=== PATIENT | male | born 1960 | race Caucasian/White ===

== ENCOUNTER 2022-06-02 13:44 | Inpatient (IN) ==
[2022-06-02 14:15] LABS: Basophils # 0.1 K/mcL (0.0-0.2); Basophils % 0.5 %; Eosinophils # 0.2 K/mcL (0.0-0.6); Eosinophils % 1.1 %; Hematocrit 45.8 % (37.5-50.1); Hemoglobin 14.8 g/dL (12.9-16.9); Immature Granulocytes % 0.3 % (0-4); Lymphocytes # 3.5 K/mcL (0.6-4.6); Lymphocytes % 26.3 %; Mean Corpuscular HGB Conc 32.3 g/dL (31.6-35.5); Mean Corpuscular Hemoglobin 28.1 pg (28.0-33.3); Mean Corpuscular Volume 87.1 fL (83.0-100.0); Mean Platelet Volume 9.7 fL (9.4-12.4); Monocytes # 1.9 K/mcL (0.0-1.3); Neutrophils # 7.7 K/mcL (1.6-8.9); Platelet Count 354 K/mcL (140-400); Red Blood Count 5.26 M/mcL (4.19-5.50); Red Cell Distribution Width 13.4 % (11.5-14.5); Segmented Neutrophils % 57.8 %; White Blood Count 13.3 K/mcL (4.3-11.1)
[2022-06-02 14:31] LABS: BUN/Creatinine Ratio 18 (6-26); Blood Urea Nitrogen 16 mg/dL (8-23); Calcium 10.1 mg/dL (8.6-10.3); Carbon Dioxide 28 mEq/L (23-29); Chloride 103 mEq/L (98-107); Glucose 124 mg/dL (70-105); Osmolality,Calculated 293 (280-300); Potassium 3.7 mEq/L (3.5-5.1); Sodium 140 mEq/L (136-145); Troponin I < 0.03 ng/mL (< 0.04)
[2022-06-02] MEDS ORDERED: Ondansetron 4 MG/2 ML VIAL IVP ONE (14:33)
[2022-06-02] MEDS ORDERED: 0.9 % Sodium Chloride 1,000 ML IV ONE ×2 (14:33→15:46)
[2022-06-02] MEDS ORDERED: Iopamidol - 370 500 ML MLS IVP ONE (14:33)
[2022-06-02 15:04] LABS: Alanine Aminotransferase 27 Units/L (7-52); Albumin 4.7 g/dL (3.5-5.7); Albumin/Globulin Ratio 1.5 (1.1-2.2); Alkaline Phosphatase 63 Units/L (34-104); Aspartate Amino Transferase 29 Units/L (13-39); Bilirubin,Direct 0.1 mg/dL (0.0-0.2); Bilirubin,Indirect 0.3 mg/dL (0.0-1.0); Bilirubin,Total 0.4 mg/dL (0.3-1.0); Creatine Kinase 274 Units/L (30-223); Globulin 3.1 g/dL (2.4-3.5); Lipase > 1800 Units/L (11-82); Total Protein 7.8 g/dL (6.4-8.9)
[2022-06-02] MEDS ORDERED: Orphenadrine 60 MG/2 ML VIAL IVP ONE (15:08)
[2022-06-02] MEDS ORDERED: Ketorolac 30 MG/ML VIAL IVP ONE (15:08)
[2022-06-02 16:15] LABS: Influenza A PCR Negative (Negative); Influenza B PCR Negative (Negative); Resp. Syncytial Virus PCR Negative (Negative)
[2022-06-02 16:31] LABS: SARS-CoV-2 by PCR (In House) Positive (Negative)
[2022-06-02 16:54] LABS: Bilirubin,Urine Negative (Negative); Blood,Urine Negative (Negative); Clarity,Urine Clear (Clear); Color,Urine Colorless (Yellow); Glucose,Urine (UA) Normal (Normal); Ketones,Urine Negative (Negative); Leukocyte Esterase,Urine Negative (Negative); Nitrite,Urine Negative (Negative); Protein,Urine Negative (Neg-Trace); Urobilinogen,Urine Normal (Normal)
[2022-06-02] MEDS ORDERED: cefTRIAXone 1,000 MG in Water for inj. (sterile) 10 ML IVP ONE (17:06)
[2022-06-02] MEDS ORDERED: MOM Conc 10 ML UD.LIQ PO PRN (17:34)
[2022-06-02] MEDS ORDERED: Naloxone 0.4 MG/ML INJ IVP PRN (17:34)
[2022-06-02] MEDS ORDERED: Melatonin 3 MG TABLET PO PRN (17:34)
[2022-06-02] MEDS ORDERED: Mag Hydrox/Al Hydrox/Simeth 30 ML UDC PO PRN (17:34)
[2022-06-02] MEDS ORDERED: Piperacillin/Tazobactam 3.375 GM in 0.9 % Sodium Chloride Mini Bag 100 ML IVPB SCH (18:00)
[2022-06-02] MEDS: 0.9 % Sodium Chloride 1,000 ML IVC SCH (18:38)
[2022-06-02] MEDS ORDERED: tiZANidine 4 MG TABLET PO ONE (21:52)
[2022-06-02] MEDS: Ondansetron 4 MG/2 ML VIAL IVP PRN (21:56)
[2022-06-02] MEDS: Piperacillin/Tazobactam 3.375 GM in 0.9 % Sodium Chloride Mini Bag 100 ML IVPB SCH (23:28)
[2022-06-03] MEDS ORDERED: Prochlorperazine 10 MG/2 ML VIAL IVP ONE (02:49)
[2022-06-03 03:54] LABS: Lymphocytes % 5.3 %; Red Cell Distribution Width 13.7 % (11.5-14.5)
[2022-06-03 03:55] LABS: Basophils % 0.2 %; Hematocrit 45.7 % (37.5-50.1); Hemoglobin 14.5 g/dL (12.9-16.9); Immature Granulocytes % 0.6 % (0-4); Immature Platelets 10.5 % (1.1-6.1); Lymphocytes # 1.1 K/mcL (0.6-4.6); Mean Corpuscular HGB Conc 31.7 g/dL (31.6-35.5); Mean Corpuscular Hemoglobin 28.3 pg (28.0-33.3); Mean Corpuscular Volume 89.1 fL (83.0-100.0); Mean Platelet Volume 11.4 fL (9.4-12.4); Monocytes # 1.1 K/mcL (0.0-1.3); Monocytes % 5.3 %; Neutrophils # 18.2 K/mcL (1.6-8.9); Platelet Count 178 K/mcL (140-400); Red Blood Count 5.13 M/mcL (4.19-5.50); Segmented Neutrophils % 88.6 %; White Blood Count 20.5 K/mcL (4.3-11.1)
[2022-06-03 04:10] LABS: Lipase 456 Units/L (11-82)
[2022-06-03 04:18] LABS: Alanine Aminotransferase 23 Units/L (7-52); Albumin 4.3 g/dL (3.5-5.7); Albumin/Globulin Ratio 1.5 (1.1-2.2); Alkaline Phosphatase 57 Units/L (34-104); Aspartate Amino Transferase 24 Units/L (13-39); BUN/Creatinine Ratio 20 (6-26); Bilirubin,Total 0.5 mg/dL (0.3-1.0); Blood Urea Nitrogen 16 mg/dL (8-23); Calcium 8.9 mg/dL (8.6-10.3); Carbon Dioxide 22 mEq/L (23-29); Chloride 103 mEq/L (98-107); Globulin 2.8 g/dL (2.4-3.5); Glucose 119 mg/dL (70-105); Osmolality,Calculated 282 (280-300); Sodium 135 mEq/L (136-145); Total Protein 7.1 g/dL (6.4-8.9)
[2022-06-03] MEDS: *HR* Enoxaparin 40 MG/0.4 ML SYRINGE SQ SCH (04:47)
[2022-06-03] MEDS: 0.9 % Sodium Chloride 1,000 ML IVC SCH (04:48)
[2022-06-03] MEDS: *HR* HYDROmorphone (PF) 1 MG/ML SYRINGE IVP PRN ×5 (07:28→23:19)
[2022-06-03] MEDS: Piperacillin/Tazobactam 3.375 GM in 0.9 % Sodium Chloride Mini Bag 100 ML IVPB SCH ×3 (07:29→23:18)
[2022-06-04 01:53] LABS: Mean Platelet Volume 9.7 fL (9.4-12.4); Red Cell Distribution Width 14.3 % (11.5-14.5)
[2022-06-04 01:54] LABS: Hematocrit 41.9 % (37.5-50.1); Hemoglobin 13.5 g/dL (12.9-16.9); Mean Corpuscular HGB Conc 32.2 g/dL (31.6-35.5); Mean Corpuscular Hemoglobin 28.4 pg (28.0-33.3); Platelet Count 286 K/mcL (140-400); Red Blood Count 4.76 M/mcL (4.19-5.50); White Blood Count 26.9 K/mcL (4.3-11.1)
[2022-06-04 02:10] LABS: BUN/Creatinine Ratio 20 (6-26); Blood Urea Nitrogen 15 mg/dL (8-23); Calcium 9.1 mg/dL (8.6-10.3); Carbon Dioxide 22 mEq/L (23-29); Chloride 106 mEq/L (98-107); Creatine Kinase 247 Units/L (30-223); Glucose 107 mg/dL (70-105); Osmolality,Calculated 283 (280-300); Potassium 3.5 mEq/L (3.5-5.1); Sodium 136 mEq/L (136-145)
[2022-06-04 02:51] LABS: Eosinophils # 0.5 K/mcL (0.0-0.6); Lymphocytes # 1.6 K/mcL (0.6-4.6); Monocytes # 2.2 K/mcL (0.0-1.3); Neutrophils # 22.6 K/mcL (1.6-8.9)
[2022-06-04 02:52] LABS: Platelet Estimate Normal (Normal)
[2022-06-04] MEDS: *HR* Enoxaparin 40 MG/0.4 ML SYRINGE SQ SCH (04:08)
[2022-06-04] MEDS: *HR* HYDROmorphone (PF) 1 MG/ML SYRINGE IVP PRN ×6 (04:08→22:12)
[2022-06-04] MEDS: Piperacillin/Tazobactam 3.375 GM in 0.9 % Sodium Chloride Mini Bag 100 ML IVPB SCH ×2 (08:51→16:23)
[2022-06-04] MEDS ORDERED: Iopamidol - 370 500 ML MLS IVP ONE (09:03)
[2022-06-04] MEDS ORDERED: Iopamidol - 370 500 ML MLS PO ONE (09:56)
[2022-06-04] MEDS ORDERED: *HR* HYDROmorphone (PF) 1 MG/ML SYRINGE IVP ONE (10:52)
[2022-06-04 13:08] LABS: Creatine Kinase 186 Units/L (30-223)
[2022-06-04] MEDS: 0.9 % Sodium Chloride 1,000 ML IVC SCH ×2 (14:42→22:13)
[2022-06-04] MEDS: Acetaminophen IV 1,000 MG/100 ML BAG IVPB SCH (18:20)
[2022-06-05] MEDS: Acetaminophen IV 1,000 MG/100 ML BAG IVPB SCH ×5 (00:03→23:48)
[2022-06-05] MEDS: Piperacillin/Tazobactam 3.375 GM in 0.9 % Sodium Chloride Mini Bag 100 ML IVPB SCH ×4 (00:03→23:51)
[2022-06-05] MEDS: *HR* HYDROmorphone (PF) 1 MG/ML SYRINGE IVP PRN ×7 (02:12→23:50)
[2022-06-05 02:45] LABS: Basophils % 0.2 %; Eosinophils % 0.2 %; Hemoglobin 12.2 g/dL (12.9-16.9); Immature Granulocytes % 0.7 % (0-4); Lymphocytes # 1.5 K/mcL (0.6-4.6); Lymphocytes % 6.2 %; Mean Corpuscular HGB Conc 32.1 g/dL (31.6-35.5); Mean Corpuscular Volume 87.4 fL (83.0-100.0); Mean Platelet Volume 10.1 fL (9.4-12.4); Monocytes # 2.5 K/mcL (0.0-1.3); Monocytes % 10.2 %; Neutrophils # 20.5 K/mcL (1.6-8.9); Platelet Count 221 K/mcL (140-400); Red Blood Count 4.35 M/mcL (4.19-5.50); Red Cell Distribution Width 13.8 % (11.5-14.5); Segmented Neutrophils % 82.5 %; White Blood Count 24.8 K/mcL (4.3-11.1)
[2022-06-05 02:49] LABS: Alanine Aminotransferase 15 Units/L (7-52); Albumin 3.7 g/dL (3.5-5.7); Albumin/Globulin Ratio 1.3 (1.1-2.2); Alkaline Phosphatase 64 Units/L (34-104); Aspartate Amino Transferase 26 Units/L (13-39); BUN/Creatinine Ratio 22 (6-26); Bilirubin,Total 0.7 mg/dL (0.3-1.0); Blood Urea Nitrogen 13 mg/dL (8-23); Calcium 8.5 mg/dL (8.6-10.3); Carbon Dioxide 21 mEq/L (23-29); Chloride 104 mEq/L (98-107); Globulin 2.8 g/dL (2.4-3.5); Glucose 101 mg/dL (70-105); Magnesium 1.9 mg/dL (1.6-2.6); Osmolality,Calculated 278 (280-300); Phosphorous 1.6 mg/dL (2.7-4.5); Potassium 3.4 mEq/L (3.5-5.1); Sodium 134 mEq/L (136-145); Total Protein 6.5 g/dL (6.4-8.9)
[2022-06-05] MEDS: 0.9 % Sodium Chloride 1,000 ML IVC SCH ×3 (06:01→20:40)
[2022-06-05] MEDS: *HR* Enoxaparin 40 MG/0.4 ML SYRINGE SQ SCH (06:02)
[2022-06-05] MEDS: *HR* Labetalol 20 MG/4 ML SYRINGE IVP PRN (14:19)
[2022-06-05] MEDS: Ondansetron 4 MG/2 ML VIAL IVP PRN (15:19)
[2022-06-06] MEDS: *HR* HYDROmorphone (PF) 1 MG/ML SYRINGE IVP PRN ×6 (02:58→23:37)
[2022-06-06] MEDS: Ondansetron 4 MG/2 ML VIAL IVP PRN ×2 (03:14→19:26)
[2022-06-06 05:55] LABS: Alanine Aminotransferase 20 Units/L (7-52); Albumin 3.5 g/dL (3.5-5.7); Albumin/Globulin Ratio 1.2 (1.1-2.2); Alkaline Phosphatase 77 Units/L (34-104); Aspartate Amino Transferase 18 Units/L (13-39); BUN/Creatinine Ratio 20 (6-26); Bilirubin,Total 0.7 mg/dL (0.3-1.0); Blood Urea Nitrogen 13 mg/dL (8-23); Calcium 8.6 mg/dL (8.6-10.3); Carbon Dioxide 26 mEq/L (23-29); Chloride 103 mEq/L (98-107); Glucose 99 mg/dL (70-105); Magnesium 1.9 mg/dL (1.6-2.6); Osmolality,Calculated 282 (280-300); Sodium 136 mEq/L (136-145); Total Protein 6.5 g/dL (6.4-8.9)
[2022-06-06] MEDS: *HR* Enoxaparin 40 MG/0.4 ML SYRINGE SQ SCH (06:13)
[2022-06-06] MEDS: Acetaminophen IV 1,000 MG/100 ML BAG IVPB SCH ×4 (06:16→23:37)
[2022-06-06] MEDS: 0.9 % Sodium Chloride 1,000 ML IVC SCH ×3 (07:57→19:27)
[2022-06-06] MEDS: Piperacillin/Tazobactam 3.375 GM in 0.9 % Sodium Chloride Mini Bag 100 ML IVPB SCH ×2 (07:57→15:35)
[2022-06-06 09:02] LABS: Basophils % 0.2 %; Eosinophils # 0.2 K/mcL (0.0-0.6); Eosinophils % 1.1 %; Hematocrit 35.9 % (37.5-50.1); Hemoglobin 12.1 g/dL (12.9-16.9); Immature Granulocytes % 0.5 % (0-4); Lymphocytes # 1.4 K/mcL (0.6-4.6); Lymphocytes % 7.4 %; Mean Corpuscular HGB Conc 33.7 g/dL (31.6-35.5); Mean Corpuscular Hemoglobin 28.9 pg (28.0-33.3); Mean Corpuscular Volume 85.9 fL (83.0-100.0); Mean Platelet Volume 9.6 fL (9.4-12.4); Monocytes # 1.9 K/mcL (0.0-1.3); Monocytes % 10.2 %; Neutrophils # 15.4 K/mcL (1.6-8.9); Platelet Count 246 K/mcL (140-400); Red Blood Count 4.18 M/mcL (4.19-5.50); Red Cell Distribution Width 13.7 % (11.5-14.5); Segmented Neutrophils % 80.6 %
[2022-06-07] MEDS: Piperacillin/Tazobactam 3.375 GM in 0.9 % Sodium Chloride Mini Bag 100 ML IVPB SCH ×3 (02:19→16:02)
[2022-06-07] MEDS: *HR* HYDROmorphone (PF) 1 MG/ML SYRINGE IVP PRN ×2 (04:08→07:34)
[2022-06-07] MEDS: *HR* Enoxaparin 40 MG/0.4 ML SYRINGE SQ SCH (04:09)
[2022-06-07] MEDS: Acetaminophen IV 1,000 MG/100 ML BAG IVPB SCH ×5 (05:37→21:27)
[2022-06-07] MEDS: Ondansetron 4 MG/2 ML VIAL IVP PRN (07:33)
[2022-06-07] MEDS: 0.9 % Sodium Chloride 1,000 ML IVC SCH ×2 (07:37→17:31)
[2022-06-07 08:51] LABS: Basophils % 0.3 %; Eosinophils # 0.3 K/mcL (0.0-0.6); Hemoglobin 11.7 g/dL (12.9-16.9); Immature Granulocytes % 0.5 % (0-4); Lymphocytes # 1.4 K/mcL (0.6-4.6); Lymphocytes % 8.8 %; Mean Corpuscular HGB Conc 32.5 g/dL (31.6-35.5); Mean Corpuscular Hemoglobin 28.3 pg (28.0-33.3); Mean Corpuscular Volume 87.2 fL (83.0-100.0); Mean Platelet Volume 9.9 fL (9.4-12.4); Monocytes # 1.8 K/mcL (0.0-1.3); Monocytes % 11.7 %; Neutrophils # 12.1 K/mcL (1.6-8.9); Platelet Count 282 K/mcL (140-400); Red Blood Count 4.13 M/mcL (4.19-5.50); Red Cell Distribution Width 13.8 % (11.5-14.5); Segmented Neutrophils % 76.7 %; White Blood Count 15.7 K/mcL (4.3-11.1)
[2022-06-07 08:59] LABS: INR 1.2; Prothrombin Time 13.8 Seconds (9.4-12.1)
[2022-06-07] MEDS ORDERED: *HR* OxyCODONE Immed Rel 5 MG TABLET PO PRN ×2 (09:03→11:02)
[2022-06-07 09:06] LABS: Alanine Aminotransferase 20 Units/L (7-52); Albumin 3.1 g/dL (3.5-5.7); Alkaline Phosphatase 84 Units/L (34-104); Aspartate Amino Transferase 16 Units/L (13-39); BUN/Creatinine Ratio 21 (6-26); Bilirubin,Total 0.5 mg/dL (0.3-1.0); Blood Urea Nitrogen 11 mg/dL (8-23); Calcium 8.2 mg/dL (8.6-10.3); Carbon Dioxide 24 mEq/L (23-29); Chloride 103 mEq/L (98-107); Globulin 3.1 g/dL (2.4-3.5); Glucose 88 mg/dL (70-105); Magnesium 1.8 mg/dL (1.6-2.6); Osmolality,Calculated 281 (280-300); Phosphorous 1.8 mg/dL (2.7-4.5); Potassium 2.8 mEq/L (3.5-5.1); Sodium 136 mEq/L (136-145); Total Protein 6.2 g/dL (6.4-8.9)
[2022-06-07] MEDS: *HR* OxyCODONE Immed Rel 5 MG TABLET PO PRN (11:56)
[2022-06-08] MEDS: *HR* OxyCODONE Immed Rel 5 MG TABLET PO PRN (01:51)
[2022-06-08] MEDS: Piperacillin/Tazobactam 3.375 GM in 0.9 % Sodium Chloride Mini Bag 100 ML IVPB SCH ×4 (01:52→23:28)
[2022-06-08] MEDS: 0.9 % Sodium Chloride 1,000 ML IVC SCH ×2 (01:54→13:24)
[2022-06-08] MEDS: Acetaminophen IV 1,000 MG/100 ML BAG IVPB SCH ×4 (03:44→21:12)
[2022-06-08 05:09] LABS: Basophils # 0.1 K/mcL (0.0-0.2); Basophils % 0.4 %; Eosinophils # 0.3 K/mcL (0.0-0.6); Hemoglobin 11.9 g/dL (12.9-16.9); Immature Granulocytes % 0.8 % (0-4); Lymphocytes # 1.7 K/mcL (0.6-4.6); Lymphocytes % 10.3 %; Mean Corpuscular HGB Conc 33.1 g/dL (31.6-35.5); Mean Corpuscular Hemoglobin 28.3 pg (28.0-33.3); Mean Corpuscular Volume 85.7 fL (83.0-100.0); Mean Platelet Volume 9.9 fL (9.4-12.4); Monocytes # 1.5 K/mcL (0.0-1.3); Monocytes % 9.4 %; Neutrophils # 12.4 K/mcL (1.6-8.9); Platelet Count 279 K/mcL (140-400); Red Cell Distribution Width 13.8 % (11.5-14.5); Segmented Neutrophils % 77.1 %; White Blood Count 16.1 K/mcL (4.3-11.1)
[2022-06-08 05:32] LABS: Alanine Aminotransferase 28 Units/L (7-52); Albumin 3.2 g/dL (3.5-5.7); Albumin/Globulin Ratio 1.1 (1.1-2.2); Alkaline Phosphatase 84 Units/L (34-104); Aspartate Amino Transferase 21 Units/L (13-39); BUN/Creatinine Ratio 15 (6-26); Bilirubin,Total 0.4 mg/dL (0.3-1.0); Blood Urea Nitrogen 9 mg/dL (8-23); Calcium 8.2 mg/dL (8.6-10.3); Carbon Dioxide 25 mEq/L (23-29); Chloride 104 mEq/L (98-107); Globulin 2.9 g/dL (2.4-3.5); Glucose 91 mg/dL (70-105); Magnesium 1.8 mg/dL (1.6-2.6); Osmolality,Calculated 282 (280-300); Phosphorous 2.4 mg/dL (2.7-4.5); Potassium 2.6 mEq/L (3.5-5.1); Sodium 137 mEq/L (136-145); Total Protein 6.1 g/dL (6.4-8.9)
[2022-06-08] MEDS: *HR* Enoxaparin 40 MG/0.4 ML SYRINGE SQ SCH (05:54)
[2022-06-08] MEDS ORDERED: 0.9 % Sodium Chloride 1,000 ML IVC SCH (09:10)
[2022-06-08] MEDS: amLODIPine 5 MG TABLET PO SCH (09:37)
[2022-06-08] MEDS: Potassium Chloride Elixir 20 MEQ/15 ML UDC PO SCH ×2 (09:37→21:12)
[2022-06-09] MEDS: Acetaminophen IV 1,000 MG/100 ML BAG IVPB SCH ×2 (01:59→08:00)
[2022-06-09] MEDS: *HR* Enoxaparin 40 MG/0.4 ML SYRINGE SQ SCH (05:00)
[2022-06-09 05:54] LABS: Basophils # 0.1 K/mcL (0.0-0.2); Basophils % 0.5 %; Eosinophils # 0.4 K/mcL (0.0-0.6); Eosinophils % 2.7 %; Hematocrit 34.5 % (37.5-50.1); Hemoglobin 11.2 g/dL (12.9-16.9); Immature Granulocytes % 0.9 % (0-4); Lymphocytes % 13.3 %; Mean Corpuscular HGB Conc 32.5 g/dL (31.6-35.5); Mean Corpuscular Hemoglobin 28.2 pg (28.0-33.3); Mean Corpuscular Volume 86.9 fL (83.0-100.0); Mean Platelet Volume 9.6 fL (9.4-12.4); Monocytes # 1.5 K/mcL (0.0-1.3); Monocytes % 10.2 %; Neutrophils # 10.7 K/mcL (1.6-8.9); Platelet Count 310 K/mcL (140-400); Red Blood Count 3.97 M/mcL (4.19-5.50); Red Cell Distribution Width 13.9 % (11.5-14.5); Segmented Neutrophils % 72.4 %; White Blood Count 14.8 K/mcL (4.3-11.1)
[2022-06-09 06:25] LABS: Alanine Aminotransferase 29 Units/L (7-52); Albumin 3.1 g/dL (3.5-5.7); Albumin/Globulin Ratio 1.1 (1.1-2.2); Alkaline Phosphatase 87 Units/L (34-104); Aspartate Amino Transferase 20 Units/L (13-39); BUN/Creatinine Ratio 12 (6-26); Bilirubin,Total 0.4 mg/dL (0.3-1.0); Blood Urea Nitrogen 8 mg/dL (8-23); Calcium 8.4 mg/dL (8.6-10.3); Carbon Dioxide 26 mEq/L (23-29); Chloride 103 mEq/L (98-107); Globulin 2.9 g/dL (2.4-3.5); Glucose 98 mg/dL (70-105); Magnesium 1.7 mg/dL (1.6-2.6); Osmolality,Calculated 286 (280-300); Phosphorous 3.1 mg/dL (2.7-4.5); Potassium 2.9 mEq/L (3.5-5.1); Sodium 139 mEq/L (136-145)
[2022-06-09] MEDS: Potassium Chloride Elixir 20 MEQ/15 ML UDC PO ONE ×2 (08:00→09:11)
[2022-06-09] MEDS: amLODIPine 5 MG TABLET PO SCH (08:00)
[2022-06-09] MEDS: Piperacillin/Tazobactam 3.375 GM in 0.9 % Sodium Chloride Mini Bag 100 ML IVPB SCH ×3 (08:00→23:33)
[2022-06-09] MEDS: Potassium Chloride Elixir 20 MEQ/15 ML UDC PO SCH (09:11)
[2022-06-09] MEDS ORDERED: Acetaminophen 325 MG TABLET PO PRN (10:49)
[2022-06-09] MEDS ORDERED: 0.9 % Sodium Chloride Mini Bag 100 ML ONE (23:24)
[2022-06-09] MEDS: *HR* Labetalol 20 MG/4 ML SYRINGE IVP PRN (23:26)
[2022-06-10 01:47] LABS: Basophils # 0.1 K/mcL (0.0-0.2); Basophils % 0.5 %; Eosinophils # 0.5 K/mcL (0.0-0.6); Hemoglobin 11.2 g/dL (12.9-16.9); Immature Granulocytes % 1.9 % (0-4); Lymphocytes # 2.2 K/mcL (0.6-4.6); Lymphocytes % 14.2 %; Mean Corpuscular Hemoglobin 27.5 pg (28.0-33.3); Mean Platelet Volume 9.4 fL (9.4-12.4); Monocytes # 1.6 K/mcL (0.0-1.3); Monocytes % 10.3 %; Neutrophils # 10.7 K/mcL (1.6-8.9); Platelet Count 337 K/mcL (140-400); Red Blood Count 4.07 M/mcL (4.19-5.50); Red Cell Distribution Width 13.9 % (11.5-14.5); Segmented Neutrophils % 70.1 %; White Blood Count 15.2 K/mcL (4.3-11.1)
[2022-06-10 02:02] LABS: BUN/Creatinine Ratio 13 (6-26); Blood Urea Nitrogen 8 mg/dL (8-23); Calcium 8.3 mg/dL (8.6-10.3); Carbon Dioxide 24 mEq/L (23-29); Chloride 103 mEq/L (98-107); Glucose 100 mg/dL (70-105); Osmolality,Calculated 280 (280-300); Potassium 2.9 mEq/L (3.5-5.1); Sodium 136 mEq/L (136-145)
[2022-06-10] MEDS: amLODIPine 5 MG TABLET PO SCH (07:42)
[2022-06-10] MEDS: *HR* Enoxaparin 40 MG/0.4 ML SYRINGE SQ SCH (07:42)
[2022-06-10] MEDS: Piperacillin/Tazobactam 3.375 GM in 0.9 % Sodium Chloride Mini Bag 100 ML IVPB SCH (07:43)
[2022-06-10 10:56] VITALS: BP 150/89; PULSE 70; TEMP 98.1; O2SAT 94
== END 2022-06-10 12:09 | disposition home or self-care (01) | DRG 438 ==
LOC: EMEROOARM 13:44 → 3ANU 13:44 → SUATTDRO 19:58 → 3BNU 20:02
PROVIDERS: ADMIT Internal Medicine; ATTEND Registered Nurse